=== PATIENT | male | born 1995 | race African-American/Black ===

== ENCOUNTER 2016-09-24 14:13 | Emergency (ER) | payer OTHER ==
[~2016-09-24] VITALS: Ht 177.8 cm; Wt 95.4 kg
[2016-09-24 14:23] VITALS: BP 141/80; PULSE 88; RESP 16; TEMP 99.1; O2SAT 99
[2016-09-24 14:42] LABS: BLOOD, URINE NEG (NEG); GLUCOSE,URINE NEG (NEG); KETONE, URINE TRACE mg/dL (NEG); NITRITE,URINE NEG (NEG)
[2016-09-24 14:43] LABS: METHOD OF COLLECTION CLEAN CATCH; URINE COLOR YELLOW (YELLW/STRAW)
[2016-09-24] MEDS ORDERED: cefTRIAXone 250 MG VIAL IM ONE (14:45)
[2016-09-24] MEDS ORDERED: LIDOCAINE HCL 1% 50 ML VIAL XX ONE (14:45)
[2016-09-24] MEDS ORDERED: AZITHROMYCIN PWD FOR SUSP 1 GM PACKET PO ONE (14:45)
[2016-09-24 14:46] LABS: COMMENT (UR) CULT NOT INDICATED; CULTURE IF INDICATED CULT NOT INDICATED
--- NOTE | 2016-09-24 14:48 | PD ---
HPI Chief Complaint: Complaint Time Seen by Provider: 14:45 Travel History International Travel<30 days: No Contact w/Intl Traveler<30days: No Traveled to known affect area: No History of Present Illness HPI 20-year-old male presents to the emergency department for evaluation of intermittent dysuria over the past 2-3 months. He denies any flank pain. No fevers or chills. He denies any testicular pain or swelling. His report one sexual partner, but does not use protection. He states that his sexual partner was tested for STDs and he states it was negative. He denies any chronic medical problems or taking medications. He denies any other complaints. PFSH Past Medical History Medical History: Denies Significant Hx Diminished Hearing: No Immunizations Current: Yes Tetanus Vaccination: > 5 Years Influenza Vaccination: No Past Surgical History Surgical History: No Previous Surgery Social History Alcohol Use: Yes (occ) Tobacco Use: No Substance Use: No Allergies-Medications (Allergen,Severity, Reaction): Coded Allergies: No Known Allergies (Unverified , 09/24/16) Reported Meds & Prescriptions Reported Meds & Active Scripts Active No Active Prescriptions or Reported Medications Review of Systems Except as stated in HPI: all other systems reviewed are Neg Physical Exam Narrative GENERAL: Well-developed well-nourished male patient, ambulatory. Afebrile. SKIN: Warm and dry. HEAD: Normocephalic. Atraumatic. EYES: No scleral icterus. No injection or drainage. NECK: Supple, trachea midline. No JVD or lymphadenopathy. CARDIOVASCULAR: Regular rate and rhythm without murmurs, gallops, or rubs. RESPIRATORY: Breath sounds equal bilaterally. No accessory muscle use. Lungs sounds are clear to auscultation. GASTROINTESTINAL: Abdomen soft, non-tender, nondistended. MUSCULOSKELETAL: No cyanosis, or edema. BACK: No CVA tenderness. GENITOURINARY: Circumcised. Testes descended bilaterally without evidence of rotation. No lesions or erythema. No urethral discharge. exam was done with nurse at bedside. Data Data Last Documented VS Vital Signs Date Time Temp Pulse Resp B/P Pulse Ox O2 Delivery O2 Flow Rate FiO2 09/24/16 14:23 99.1 88 16 141/80 99 Orders Urinalysis - C+S If Indicated (09/24/16 14:33) Gc And Chlamydia Pcr (09/24/16 14:43) Labs Laboratory Tests Test 09/24/16 14:25 Urine pH 7.0 Urine Protein NEG mg/dL Urine Glucose (UA) NEG mg/dL Urine Ketones TRACE mg/dL Urine Occult Blood NEG Urine Nitrite NEG Urine Bilirubin NEG Urine Leukocyte Esterase NEG MDM Medical Decision Making Medical Screen Exam Complete: Yes Emergency Medical Condition: Yes Medical Record Reviewed: Yes Differential Diagnosis Gonorrhea versus chlamydia versus dysuria Narrative Course 20-year-old male presents to the emergency department for evaluation of intermittent dysuria for 2-3 months. Physical exam is reassuring. Patient will be prophylactically treated for chlamydia and gonorrhea with 250 mg Rocephin IM and azithromycin 1 g by mouth. Urine for gonorrhea and chlamydia are ordered and pending. Patient is instructed to follow-up with medical records for results. He is to return for any acute worsening of symptoms. He is to follow-up with urology if chlamydia and gonorrhea are negative and symptoms persist. Diagnosis Primary Impression: Possible exposure to STD Referrals: Primary Care Physician call for appointment Patient Instructions: General Instructions, Sexually Transmitted Diseases (ED) Additional Instructions: Follow-up with a primary care physician or health department for further STD workup. Return to the emergency department for any acute worsening of symptoms. Med/Other Pt SpecificInfo: No Change to Meds Scripts No Active Prescriptions or Reported Meds Disposition: 01 DISCHARGE HOME Condition: Stable Abeba Saavedra Sep 24, 2016 14:48
[2016-09-24 19:25] LABS: CHLAMYDIA PCR DETECTED (NOT DETECT); NEISSERIA PCR NOT DETECTED (NOT DETECT)
== END 2016-09-24 15:27 | disposition home or self-care (01) ==
LOC: PHEFT 14:13
DX: R30.0 Dysuria (principal)
CPT/HCPCS: 81001; 87491; 87591; 96372; 99283; J0696